=== PATIENT | male | born 1975 | race Caucasian/White ===

== ENCOUNTER 2022-03-01 09:00 | Outpatient (CLI) | payer BC, SELFPAY ==
[2022-03-01 15:17] LABS: Chloride* 102 mmol/L (96-114); Potassium* 5.2 mmol/L (3.6-5.1); Sodium* 136 mmol/L (135-149)
[2022-03-01 15:20] LABS: Blood Urea Nitrogen* 21 mg/dL (5-24); Carbon Dioxide* 27 mmol/L (20-32); Cholesterol* 181 mg/dL (90-199); Creatinine* 1.2 mg/dL (0.5-1.5); Estimated Glomerular Filt Rate 75.06; Glucose* 102 mg/dL (60-115)
[2022-03-01 15:21] LABS: Calcium* 9.5 mg/dL (8.4-10.6); HDL Cholesterol* 38 mg/dL (>=40); LDL Cholesterol Calculated 115 mg/dL (<100); Triglycerides* 138 mg/dL (40-149)
== END 2022-03-01 09:01 | disposition home or self-care (01) ==
PROVIDERS: PCP Family Medicine; Visit Provider Family Medicine
DX: Z00.00 Encounter for general adult medical examination without abnormal findings (principal); E78.5 Hyperlipidemia, unspecified; I10 Essential (primary) hypertension; Z13.0 Encounter for screening for diseases of the blood and blood-forming organs and certain disorders involving the immune mechanism
CPT/HCPCS: 80048; 80061

== ENCOUNTER 2023-05-09 09:38 | Outpatient (CLI) | payer BC, SELFPAY | END 2023-05-09 09:39 | disposition home or self-care (01) | PROVIDERS: PCP Family Medicine; Visit Provider Family Medicine | DX: Z00.00 Encounter for general adult medical examination without abnormal findings (principal); I10 Essential (primary) hypertension; E78.5 Hyperlipidemia, unspecified | CPT/HCPCS: 80048; 80061 ==

== ENCOUNTER 2024-06-18 11:06 | Outpatient (CLI) | payer BC, SELFPAY | END 2024-06-18 11:07 | disposition home or self-care (01) | PROVIDERS: PCP Family Medicine; Visit Provider Family Medicine | DX: Z00.00 Encounter for general adult medical examination without abnormal findings (principal); I10 Essential (primary) hypertension; E78.5 Hyperlipidemia, unspecified; E88.810 Metabolic syndrome; Z12.5 Encounter for screening for malignant neoplasm of prostate | CPT/HCPCS: 80048; 80061; G0103 ==

== ENCOUNTER 2025-03-07 03:43 | Emergency (ER) | payer BC, SELFPAY ==
--- OUTSIDE RECORDS SUMMARY | 2023-01-09 04:01 | XMS_ITS | Continuity of Care Document ---
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 Role Phone Gretchen Montanez CRNA Unavailable Unavailable Allergies, Adverse Reactions, Alerts Substance Reaction Status Criticality No Known Allergies Active No Inform ation Medications Medication Instructions Dosage Effective Dates (start - stop) Status Comments Crestor 40 mg tablet take 1 tablet by or al route every day 40 MG - Active pantoprazole 40 mg tablet,delayed release take 1 tablet by oral route every day 40 MG - Active trazodone 50 mg tablet take 1 tablet by oral route every day after meals as needed 50 MG - Active Procedures Procedure Date Colonoscopy Flex; W/bx 1/mx Ugi Endo; W/bx 1/mx Level Iv-surg Path Gross/micro Advance Directives Directive Yes / No Effective Date File Name No Information Encounters Encounter Description Practice Location Reason(s) For Visit Diagnoses Date Provider Providers Copied on Encounter [facility], [address] [address], [place], [id number], [place] tel:[phone] [facility] No Information 3 Lisseth Godinez. [address] [facility] [place] [facility], [facility] [place], [id number] , [place]. tel:[phone] Referring Provider: Reinaldo Dewitt MD, [address] [facility] [place] [facility] [address], [place], [address] . tel:[phone] [facility], [address] [address], [place], [id number], tel:[phone] [facility] GI Symptoms or Concerns (chief complaint) Hiatal herniaEpigastric painBloody diarrheaOther hemorrhoidsEpigastr ic painOther hemorrhoids 3 Esdras Najera. [address] [facility] [place] [facility], [place], [id number] , [place]. tel:[phone] Referring Provider: Adonay Lockwood MD D, [address] [place], [address]. tel:[phone] Family History Family Member Type Diagnosis Age At Onset No Information Payers Payer name Insurance type Covered republican ID Authorsulemaa corona(s) Blue Cross Of [facility] [id number] Social History Type Description Quantity Date Captured Comments Sex Male Smoking Status No Information Chief Complaint And Reason For Visit No Information Reason For Referral Reason For Referral No Information History Of Present Illness Encounter Date Complaint History Of Prese nt Illness GI Symptoms or Concerns Functional Status Date Functional Assessmen t No Information Instructions Date Instruction Additional Infor mation Hiatal Hernia Related to Hiata l hernia Hemorrhoids Related to Hiata l hernia Colon Cancer Prevention Related to Hiatal hernia Assessments Type Assessment Date No Information Patient Care Teams Name Effective Dates (start - stop) Status Members No Information
--- OUTSIDE RECORDS SUMMARY | 2023-01-09 04:01 | XMS_ITS | Continuity of Care Document ---
Author Organization [facility] Address [address] [address] [place] [address] Phone Care Team Providers Care Wireless Store Manager Name Role Phone Gretchen Montanez CRNA Unavailable [...] Diagnoses Date Provider Providers Copied on Encounter [facility], [address] [address], [place], [id number], [place] tel:[phone] [facility] No Information 3 Lisseth Godinez. [address] [facility], [facility] [place], [id number] , [place]. tel:[phone] Referring Provider: Reinaldo Dewitt MD, [address] [facility] [address], [place], [address] . tel:[phone] [facility], [address] [address], [place], [id number], tel:[phone] [facility] GI Symptoms or Concerns (chief complaint) Hiatal herniaEpigastric painBloody diarrheaOther hemorrhoidsEpigastr ic painOther hemorrhoids 3 Esdras Najera. [address] [facility], [place], [id number] , [place]. tel:[phone] Referring Provider: Adonay Lockwood MD D, [address] [place], [address]. tel:[phone] Family History Family Member Type Diagnosis Age At Onset No Information Payers Payer name Insurance type Covered libertarian ID Authorsulemaa corona(s) Blue Cross Of [facility] [id number] Social History Type Description Quantity Date Captured [...]
[2025-03-07] VITALS (8 sets, daily range): BP systolic 127–144; BP diastolic 74–91; PULSE 60–75; RESP 15–23; TEMP 36.7; O2SAT 96–98; BMI 35.3
--- OUTSIDE RECORDS SUMMARY | 2025-03-07 03:45 | XMS_ITS | Clinical Summary ---
Author Organization [facility] Address [address] [place] [id number] Care Team Providers Care Rehab Spec Name Role Phone Pcp, No Primary Care Provider Unavailabl e Allergies No known active allergies Medications atorvastatin (LIPITOR) 10 mg tablet Take 10 mg by mouth at bedtime. 12/26/19 22 Active fenofibrate nanocrystallized (TRICOR) 145 mg tablet Take 145 mg by mouth. 12/23/19 22 Active lisinopriL (PRINIVIL; ZESTRIL) 20 mg tablet Take 20 mg by mouth once daily. 12/23/19 22 Active metFORMIN (GLUCOPHAGE) 500 mg tablet TAKE 1 TABLET BY MOUTH WITH BREAKFAST AND 2 TABLETS WITH SUPPER. 12/26/19 22 Active aspirin 81 mg cap Take 81 mg by mouth once daily. 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 Gender Identity Not on file Sexual Orientation Not on file Last Filed Vital Signs Vital Sign Reading Time Taken Comments Blood Pressure 140/87 02/19/2022 12:47 PM CDT Pulse 66 02/19/2022 12:47 PM CDT Temperature 36.9 C (98.5 F) 02/19/2022 12:47 PM CDT Respiratory Rate 16 02/19/2022 12:47 PM CDT Oxygen Saturation 100% 02/19/2022 12:47 PM CDT Inhaled Oxygen Concentration - - Weight - - Height - - Body Mass Index - - Plan of Treatment Health Maintenance Due Date Last Done Comments Tetanus booster 1985 Depression screening for age 12+ 1986 HIV for age 15-65 1989 BMI (ht and wt on same day) for age 18+ 1992 Hepatitis C screening for age 18-79 1992 Hepatitis B series for 19+ ( 1 of 3 - 19+ 3-dose series) 1993 Colonoscopy through age 75 2019 Lipids for age 45-75 2019 COVID-19 vaccine series (3 - 2023- season) 2024 12/05/2020, 11/14/2020 Pneumococcal series for age 50+ (1 of 1 - PCV) 2024 Zoster (shingles) series for age 50+ (1 of 2) 2024 Influenza Vaccine (#1) 2025 Insurance [place] [address] Care Teams Rehab Spec Relationship Specialty Start Date End Date Pcp, No . PCP - General 08/29/24
--- NOTE | 2025-03-07 04:12 | CRLHL7_ITS ---
For Patients: As a result of the Century Cures Act, medical imaging exams and procedure reports are released immediately into your electronic medical record. You may view this report before your referring provider. If you have questions, please contact your health care provider. INDICATION: Chest pain. TECHNIQUE: Chest 2 views. COMPARISON: None. FINDINGS: Cardiovascular and mediastinum: Heart size is normal. Unremarkable mediastinum. Lungs and pleural spaces: Lungs are clear. No sign of infiltrate or mass. No sign of pleural effusion. No pneumothorax. Bones and soft tissues: No significant findings. IMPRESSION: No acute findings. Dictated by Kiki Morrison MD @ 03/07/2025 5:17:08 AM (Electronically Signed)
--- NOTE | 2025-03-07 04:23 | ED.GENADULT ---
HPI - General Adult General Chief complaint: Chest Pain Stated complaint: Chest pain, back pain Time Seen by Provider: 03/07/25 04:01 Source: patient Mode of arrival: ambulatory Limitations: no limitations History of Present Illness HPI narrative: 49-year-old male presents to the emergency department with chest pain that woke him from sleep at 2:30 a.m. which is 90 minutes prior to arrival. Pain is in the lower sternal area, radiates to the mid back. Not exertional, not affected by position. Not accompanied by shortness of breath, nausea and vomiting or other similar illness. No fever. Has had a mild cough today but nonproductive. No injury or trauma. No prior history of similar symptoms. No prior cardiac workup. Took 3 aspirin prior to coming to ED. pain has been stable. No prior history of GI issues, no prior endoscopy. No prior cardiac workup, echo, stress test or similar. Denies GI symptoms. Notable past medical history of hypertension, hyperlipidemia and metabolic syndrome. Home meds are metformin, lisinopril, atorvastatin and fenofibrate. Nonsmoker. Denies prior GI surgeries. ROS is notable for the chest symptoms only, otherwise denies times 12 systems. Related Data Home Medications ?Medication ?Instructions ?Recorded ?Confirmed aspirin 81 mg chewable tablet 1 tab PO DAILY 02/28/22 03/07/25 Previous Rx's ?Medication ?Instructions ?Recorded atorvastatin 10 mg tablet 10 mg PO .Bedtime #90 tabs 06/18/24 fenofibrate nanocrystallized 145 145 mg PO DAILY #90 tabs 06/18/24 mg tablet lisinopril 20 mg tablet 20 mg PO DAILY #90 tabs 06/18/24 metformin 500 mg tablet 500 - 1,000 mg (1 - 2 x 500 mg) PO 06/18/24 BIDWMEAL #270 tabs Allergies Allergy/AdvReac Type Severity Reaction Status Date / Time No Known Allergies Allergy Verified 03/07/25 03:59 PFSH PFS Surgical History History of vasectomy (11/19/12) ?Z98.52 - Vasectomy status (ICD-10) Family History Other ASCVD (arteriosclerotic cardiovascular disease) Social History What is your current living situation?: I presently have a place to live Problems where you live: no known problems In the past 12 months, utilities in danger of being shut off: no In past 12 months, lack of transportation kept you from medical appts, meetings, work, or getting things needed for daily living: no In the past 12 mos, have been you worried that your food would run out before you had money to buy more?: never true In the past 12 mos, the food you bought just didn't last and you didn't have money to buy more?: never true Smoking Status: Current every day smoker Non-prescribed substance use: denies use How often does anyone, including family, friends and others, physically hurt you: never How often does anyone, including family, friends and others, insult or talk down to you: never How often does anyone, including family, friends and others, threaten you with harm: never How often does anyone, including family, friends and others, scream or curse at you: never Exam Const: Vital Signs, click to edit/add: Vital Signs - 24 hr 03/07/25 03:57 03/07/25 04:14 Temperature 98.1 F Pulse Rate [Pulse Oximeter] 75 Respiratory Rate 16 Blood Pressure [Le ft Upper Arm] 144/87 H Pulse Oximetry 98 96 Oxygen Delivery Me thod Room Air Documenting provider has reviewed patient's vital signs: yes Common normals: no apparent distress and alert General appearance: cooperative and well kempt HENMT: Common normals: normocephalic and moist oral mucous membranes Head and scalp: normocephalic Face and sinus: normal facial exam Mouth: oral and palatal mucosa normal Throat: posterior oropharynx normal Eye: Common normals: conjunctivae normal General eye: normal appearance of both eyes Conjunctiva: conjunctiva(e) normal Neck & C-Spine: Common normals: full ROM and no lymphadenopathy General: normal visual inspection Resp: Common normals: normal respiratory effort, no use of accessory muscles and clear to auscultation bilaterally Effort & inspection: able to speak in complete sentences Auscultation: clear to auscultation bilaterally Cardio: Common normals: regular rate, regular rhythm, S1 normal heart sound, S2 normal heart sound and no murmurs Rate: regular rate Rhythm: regular rhythm Heart sounds: S1 normal and S2 normal GI: Common normals: Normal to inspection, nondistended, normoactive bowel sounds present, soft to palpation, no hepatosplenomegaly and no masses Palpation: soft and no hepatosplenomegaly Other: Tenderness to palpation of epigastrium only. : Common normals: no CVA tenderness Bladder/kidney exam: no CVA tenderness Back & Pelvis: Common normals: no CVA tenderness Extremity: Common normals: normal to inspection and normal capillary refill Neuro: Common normals: moves all extremities Sensorium/orientation: alert Motor exam: strength 5/5 throughout Psych: Appearance: well kempt Attitude: engaged Activity/motor behavior: appropriate eye contact Insight: insight good Judgement: judgment good Skin: Common normals: no rashes or lesions noted General skin exam: no rashes or lesions noted Course Course ED Course: 49-year-old male with chest pain radiating to the back with epigastric tenderness on exam. Suspicious for GI etiology but cannot exclude acute coronary syndrome, esophageal process, pulmonary process, other GI etiologies, musculoskeletal etiology, amongst many others. Will obtain EKG, placed on color television console monitor. Obtain typical cardiac labs but also GI labs. I do suspect that this is likely GI based on his epigastric tenderness but will do a trial of nitroglycerin which I suspect will be unsuccessful in improving his pain. Would then consider famotidine and GI cocktail. Will also obtain chest x-ray. Reevaluation(s) Time of Reevaluation #1: 06:31 Reevaluation #1: Nitroglycerin did not improve patient's pain, GI medications not improved pain either but it has seems to have subsided slightly on its own. We reviewed all of his normal testing. Labs, x-ray, cardiac workup and observation are all reassuring. Offered anti-inflammatory medicine to see if this would improve things and he declines, stating that he is reassured by the workup. Counseled patient this still could be part of a GI process, something musculoskeletal but I suspect it might be an inflammation of the lining of the lungs, pleurisy. This would fit with his cough and is most likely caused by a viral process. Counseled patient that I cannot run all tests that would typically work this up in the emergency department in if he has persistent symptoms, he should make a clinic visit to do further testing. Alarm symptoms that would warrant ED presentation were reviewed and written instructions were provided regarding this. He verbalizes understanding and agreement. Counseled on use of NSAIDs, Tylenol in the interim to help with symptom management. Vital Signs Vital signs: Initial Vital Signs Temperature 98.1 F 03/07/25 03:57 Temperature Source Temporal Artery Scan 03/07/25 03:57 Pulse Rate 75 03/07/25 03:57 Respiratory Rate 16 03/07/25 03:57 Blood Pressure 144/87 H 03/07/25 03:57 Blood Pressure Mean 106 H 03/07/25 03:57 Pulse Oximetry 98 03/07/25 03:57 Oxygen Delivery Method Room Air 03/07/25 03:57 Vital Signs Temperature 98.1 F 03/07/25 03:57 Pulse Rate 75 03/07/25 03:57 Respiratory Rate 16 03/07/25 03:57 Blood Pressure 144/87 H 03/07/25 03:57 Pulse Oximetry 98 03/07/25 03:57 Oxygen Delivery Method Room Air 03/07/25 03:57 Temperature 98.1 F 03/07/25 03:57 Pulse Rate 75 03/07/25 03:57 Respiratory Rate 16 03/07/25 03:57 Blood Pressure 144/87 H 03/07/25 03:57 Pulse Oximetry 96 03/07/25 04:14 Oxygen Delivery Method Room Air 03/07/25 03:57 Medications Administered Medications: Discontinued Medications Generic Name Dose Route Start Last Admin Trade Name Freq PRN Reason Stop Dose Admin Famotidine 20 mg 03/07/25 05:02 03/07/25 05:10 Famotidine 20 Mg Tablet PO 03/07/25 05:03 20 mg ONCE ONE Administration Lidocaine/Aluminum/Magnesium/Simeth 30 ml 03/07/25 05:02 03/07/25 05:08 Gi Cocktail (Visc Lido/Antacid) 30 Ml PO 03/07/25 05:03 30 ml ONCE ONE Administration Nitroglycerin 0.4 mg 03/07/25 04:12 03/07/25 04:25 Nitroglycerin 0.4 Mg Tab.Subl SUBLINGUAL 03/07/25 04:13 0.4 mg ONCE ONE Administration Medical Decision Making Lab Data Lab results reviewed: Yes I reviewed the patient's lab results Lab results narrative: Labs all reassuring. No signs of inflammation in the cot, chest. No signs of infection, electrolyte abnormality and renal abnormality or cardiac process. Labs: Lab Results 03/07/25 03/07/25 03/07/25 Range/Units 04:12 04:18 05:50 WBC 7.24 (4.50-11.00) K/uL RBC 5.06 (4.30-5.90) m/uL Hgb 15.2 (13.5-17.5) gm/dL Hct 45.7 (37.0-53.0) % MCV 90 (80-100) fL MCH 30 (26-34) pg MCHC 33 (32-36) gm/dL RDW Coeff of Char 12.8 (11.5-15.5) % Plt Count 243 (140-440) K/uL Neut % (Auto) 54.5 (42.0-72.0) % Lymph % (Auto) 30.5 (20-44) % [place] % (Auto) 10.9 (0.0-11.0) % Eos % (Auto) 3.3 (0.0-7.0) % Baso % (Auto) 0.7 (0.0-3.0) % Neut # (Auto) 3.94 (1.7-7.0) K/uL Lymph # (Auto) 2.21 (0.90-2.90) K/uL [place] # (Auto) 0.80 (0.00-0.90) K/UL Eos # (Auto) 0.24 (0.00-0.50) K/uL Baso # (Auto) 0.05 (0.00-0.30) K/uL Abs Immat Gran (auto) 0.01 (0.00-0.30) K/uL Imm/Tot Granulo (auto) 0.1 % Potassium 4.3 (3.6-5.1) mmol/L Chloride 106 (96-114) mmol/L Carbon Dioxide 25 (20-32) mmol/L BUN 19 (7-30) mg/dL Creatinine 1.2 (0.5-1.5) mg/dL Estimated Creat Clear 85.63 Estimated GFR 74 ml/min Glucose 125 H (60-115) mg/dL Calcium 9.5 (8.4-10.6) mg/dL Total Bilirubin 0.3 (0.1-1.5) mg/dL AST 26 (12-35) U/L ALT 22 (4-50) U/L Alkaline Phosphatase 42 (40-150) U/L Troponin I < 0.01 (0.01-0.04) ng/mL NT-Pro-B Natriuret Pep < 20 (See Note) pg/mL Total Protein 7.8 (6.0-8.3) g/dL Albumin 4.5 (3.3-5.0) g/dL Lipase 229 (23-300) U/L POC Troponin I 0.00 L 0.00 L (0.01-0.04) ng/ml Imaging Data Chest x-ray: Attestation: I have reviewed the pertinent imaging results. My impression: Normal chest x-ray. No infiltrate, cardiomegaly or effusions Radiologist's impression: IMPRESSION: No acute findings. Dictated by Kiki Morrison MD @ 03/07/2025 5:17:08 AM (Electronically Signed) ECG Data Attestation: I personally reviewed and interpreted this ECG as follows: Prior ECG tracings: not available for review Interpretation: Sinus rhythm with a rate of 67. No significant ST or T-wave abnormalities. Normal intervals and axis. Minimal changes in the QRS complex but not quite diagnostic for right bundle-branch block. Overall appears to be normal EKG. Discharge Plan Discharge Clinical Impression: Non-cardiac chest pain Patient Disposition: Home w/ Parent or Adult Condition: Stable Instructions: Thoracic Pain (ED) Additional Instructions: As we discussed, there thankfully no signs of any problems with the heart, pneumonias, problems with the gallbladder or inside the gut. Your inflammatory markers in all tests done your heart look great. Chest x-ray looks good as well. Your pain did not improve with nitroglycerin or with the GI medications, this does help to me and that your problem is more likely related to an inflammation in the lining of the lungs which would likely explain your cough as well. These are typically caused by a virus and tend to last about 5 days. He should return to the emergency department if you have severe shortness of breath, high fever, severe weakness or other worsening of symptoms. I would recommend Tylenol 1000 mg every 6 hours and or ibuprofen 600 mg every 6 hours for pain as these may also decrease the inflammation in the lining as well. If her symptoms last for more than 5 days, please make a follow-up appointment in the clinic to re-evaluate and discuss the next steps and testing that cannot be performed in the emergency department. Activity Level: No Restrictions Discharge Diet: Regular Prescriptions: No Action aspirin 81 mg tablet,chewable 1 tab PO DAILY atorvastatin 10 mg tablet 10 mg PO .Bedtime Qty: 90 3RF fenofibrate nanocrystallized 145 mg tablet 145 mg PO DAILY Qty: 90 3RF lisinopril 20 mg tablet 20 mg PO DAILY Qty: 90 3RF metformin 500 mg tablet 500 - 1,000 mg PO BIDWMEAL Qty: 270 3RF Rx Instructions: 1 with breakfast, 2 with supper. Follow Up/Referrals: Kevon Johnson MD [Primary Care Provider, Family Practice] Stand Alone Forms: [employer] Medical Info Instructions
[2025-03-07] MEDS: NITROGLYCERIN 0.4 MG TAB.SUBL SUBLINGUAL (04:25)
[2025-03-07 04:27] LABS: Hematocrit 45.7 % (37.0-53.0); Hemoglobin* 15.2 gm/dL (13.5-17.5); Immature Granulocytes Abs Auto 0.01 K/uL (0.00-0.30); Immature Granulocytes Pct Auto 0.1 %; Lymphocytes Absolute Auto 2.21 K/uL (0.90-2.90); Mean Corpuscular HGB Conc 33 gm/dL (32-36); Mean Corpuscular Hemoglobin 30 pg (26-34); Mean Corpuscular Volume 90 fL (80-100); RDW Coefficient of Variation % 12.8 % (11.5-15.5); Red Blood Count 5.06 m/uL (4.30-5.90); White Blood Count* 7.24 K/uL (4.50-11.00)
[2025-03-07 04:29] LABS: Slide Review Reflex No
[2025-03-07 04:30] LABS: Troponin, Point-of-Care* 0.00 ng/ml (0.01-0.04)
[2025-03-07] MEDS: GI COCKTAIL (VISC LIDO/ANTACID) 30 ML PO (05:08)
[2025-03-07] MEDS: FAMOTIDINE 20 MG TABLET PO (05:10)
[2025-03-07 05:17] LABS: Albumin* 4.5 g/dL (3.3-5.0); Chloride* 106 mmol/L (96-114); Potassium* 4.3 mmol/L (3.6-5.1)
[2025-03-07 05:19] LABS: Blood Urea Nitrogen* 19 mg/dL (7-30); Creatinine* 1.2 mg/dL (0.5-1.5); Est. Creatinine Clearance* 85.63; Estimated Glomerular Filt Rate 74 ml/min
[2025-03-07 05:20] LABS: Alanine Aminotransferase* 22 U/L (4-50); Alkaline Phosphatase* 42 U/L (40-150); Aspartate Amino Transferase* 26 U/L (12-35); Bilirubin Total* 0.3 mg/dL (0.1-1.5); Carbon Dioxide* 25 mmol/L (20-32); Total Protein* 7.8 g/dL (6.0-8.3)
[2025-03-07 05:21] LABS: Calcium* 9.5 mg/dL (8.4-10.6); Glucose* 125 mg/dL (60-115)
[2025-03-07 05:49] LABS: NT Pro B Type NatriureticPept* < 20 pg/mL (See Note)
[2025-03-07 06:08] LABS: Troponin, Point-of-Care* 0.00 ng/ml (0.01-0.04)
[2025-03-07 06:41] LABS: Anion Gap 4 mEq/L (7-15); Sodium* 135 mmol/L (135-149)
== END 2025-03-07 06:37 | disposition home or self-care (01) ==
PROVIDERS: Emergency Provider Family Medicine; PCP Family Medicine
DX: R07.89 Other chest pain (principal); R05.9 Cough, unspecified
CPT/HCPCS: 36415; 71046; 80053; 83690; 83880; 84484; 85025; 93005; 94761; 99284; 99285; A9270